=== PATIENT | male | born 1975 | race Caucasian/White ===

== ENCOUNTER 2025-05-10 15:03 | Outpatient (AMB) | payer OTHER, SELFPAY ==
--- OUTSIDE RECORDS SUMMARY | 2024-01-09 07:00 | XMS_ITS ---
Author Organization [facility] Address [address] [place] [address] Care Team Providers Care Side Laster Tack Name Role Phone Jenny Prieto Primary Care Provider Benjamin Ruiz Unavailable [phone] Allergies No Known Allergies Medications Medication SIG (Take, Route, Frequency, Duration) Notes Start Date End Date Status Metoprolol Succinate 25 MG 1 capsule Ora lly Once a day Active Social History Tobacco Use: Social History Observation Description Date Details (start date - stop date) Never Smoker NA - NA Tobacco Use/Smoking Question Answer Notes Are you a: nonsmoker Additional Findings: Tobacco Non-User Current no n-smoker Alcohol Screen Question Answer Notes Did you have a drink contain ing alcohol in the past year? Yes How often did you have a dri nk containing alcohol in the past year? Monthly or less (1 point) Points 1 Interpretation Negative Tobacco use other than smoking: Question Answer Notes Are you an other tobacco user? No Vital Signs Height 5ft 9in in 01/09/2024 Weight 220 lbs 01/09/2024 BMI 32.48 kg/m2 01/09/2024 Encounters Encounter [facility] Date [facility] [address] [address] 01/09/2024 Benjamin Gaytan Plan Of Treatment No Information Progress Notes * Dimas MACIASDOB: [birth year] (50 yo M)Acc No.[id number]:01/09/2024 Progress Notes Patient: Dimas CASE Provider: Kenneth Campos DPM :1975 A ge:48 Y S ex:Male Date:01/09/2024 Address:[address] [place] [address], [place], [id number] Pcp:Jenny Prieto Subjective: * Chief Complaints: * * ROS: G eneral/Constitutional: Nausea d enies. V omiting d enies. H sarina Thirst d enies. L oss appetite d enies. C hills d enies. F atigue d enies.?Fever d enies. N ight Sweats d enies. U nexplained weight loss d enies. U nexplained weight gain d enies. H EENTM: Dentures d enies. D izziness a dmits. G lasses/contacts a dmits. R etinopathy d enies. B lurred/double vision d enies. T MJ?denies. D ischarge/drainage d enies. I mplants d enies. S ore throat d enies. D ental implants d enies. H yaya of hearing d enies. D ifficulty chewing/swallowing/speaking d enies. N ose bleeds d enies. S ore mouth d enies. ? R espiratory: On Oxygen d enies. P neumonia/pleurisy d enies.?Bronchitis d enies. E mphysema d enies. C oughing d enies. C ough blood?denies. S hortness of breath d enies. W heezing d enies. C ardiovascular: Pacemaker d enies. M IT SALES CONSULTANT d enies. W PW d enies. C HF d enies. H eart attack d enies. S eptal defect d enies. R apid beat d enies. C hest pain d enies. A trial Fib. a dmits. M urmur/Palpitations d enies. G astrointestinal: Hemorrhoids d enies. S tomach/Abdominal pain d enies. D ark blood stool d enies. I rritable bowel d enies. C onstipation d enies. D iarrhea d enies. H ematology: Swelling d enies. C lots d enies. V aricose Veins d enies. B ruising d enies. B leeding problem d enies. G enitourinary: Blood urine d enies. F requent/Painfu/urination/bladder control d enies. K idney stones d enies. I nfection (UTI) d enies. N ephropathy d enies. s ex trans dis (STD) d enies. P rostate d enies. M usculoskeletal: Hammertoes d enies. B unions d enies. B ack Pain d enies. M uscle Cramps/ Resting d enies. M uscle cramps / walking d enies.?Generalized aches and pains a dmits. W eakness d enies. I nteg.: Schmidt d enies. S cars d enies. C orns/calluses?denies. I ngrown nails a dmits. P ainful nails d enies. O pen Sores d enies. R ashes d enies. N eurologic: Difficulty sleeping d enies. B rain disorder d enies. N umbness d enies. B alance trouble d enies. C onfusion d enies. F ainting/blackouts d enies. T ingling d enies. T remors d enies. * Medical History: C hicken pox, Covid-19, Irregular heartbeat. * Family History: M other: alive. F ather: alive, heart attack, diagnosed with Unspecified heart disease, Other malignant neoplasm of unspecified site. * Social History: T obacco Use: T obacco Use/Smoking A re you a: n onsmoker A dditional Findings: Tobacco Non-User C urrent non-smoker Tobacco use other than smoking A re you an other tobacco user? N o D rugs/Alcohol: D rugs H ave you used drugs other than those for medical reasons in the past 12 months? N o Alcohol Screen D id you have a drink containing alcohol in the past year? Y es H ow often did you have a drink containing alcohol in the past year? M onthly or less (1 point) P oints 1 I nterpretation N egative M iscellaneous: C affeine: yes, frequency:1 cup per day. Children: no. Exercise: walking, golf. Marital status: . 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 * Medications: T aking Metoprolol Succinate 25 MG Capsule ER 24 Hour Sprinkle 1 capsule Orally Once a day * Allergies: N .K.D.A. Objective: * Vitals: H t: 5ft 9in, Wt:220, BMI:32.48, Shoe size: 10, Ht-cm: 175.26 cm, Wt-k.79 kg. Assessment: Plan: * Treatment: * Images: * The named appointment provid er may or may not be the originator of this progress note, and it is not deemed complete until electronically signed by the appointment provider. Sign off status: Pending * Provider: Kenneth Camops DPM Date: 0 01/09/2024 Generated for Minnie toure/Tracy/Wander on: 07/11/2024 04:20 PM EST
--- NOTE | 2025-05-10 15:05 | MHC.OFFVIS ---
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 Patient used to see a violin repairer at [facility] who has since left and he is seeking 2nd opinion for management of his atrial fibrillation. Patient was diagnose with atrial fibrillation incidentally in August of 2022 in his he came in for a visit and at that time had seen a Cardiology. He was offered cardioversion although he deferred at that point time not understanding the implications of it. He said he was never explain the rhythm versus rate controlled approaches for management of atrial fibrillation. He was then managed with rate control with metoprolol in the next visit last year his metoprolol was increased to 50 mg daily. However he said that he did not tolerate metoprolol therapy and has since stopped. He is currently taking no medications. He has never been prescribed any oral anticoagulation therapy. He has also been diagnose with sleep apnea although he said the therapy given for sleep apnea, he could not tolerate. So therefore he is not currently using any therapies. He has no other significant risk factors for atrial fibrillation. He denies any symptoms related to atrial fibrillation. Denies any change in his physical capacity. Denies any exertional shortness of breath, tiredness, fatigue, orthopnea, PND, leg edema. Denies any chest pain. No lightheadedness. He had had Holter monitor in December of 2022 which showed inadequate rate control with heart rate of 114 beats per minute. Echocardiogram was done in October of 2022 which had shown low normal LV EF with mildly increased wall thickness with mildly dilated left atrium without any valvular abnormalities. He denies any bleeding risk. [facility] Medical History Obstructive sleep apnea Persistent atrial fibrillation Family History Father Afib CAD (coronary artery disease) Mother No problems noted. Social History Patient Tobacco Use Status: Never used Tobacco Review of Systems Const Denies chills, Denies daytime sleepiness, Denies fatigue, Denies fever(s), Denies frequent falls, Denies poor appetite, Denies snoring, Denies stops breathing during sleep, Denies weakness, Denies weight gain and Denies weight loss Eyes Denies loss of vision ENT Denies dizziness and Denies hearing loss Card Denies chest pain, Denies claudication, Denies leg edema, Denies lightheadedness, Denies palpitations, Denies dyspnea, Denies dyspnea on exertion and Denies orthopnea Resp Denies cough, Denies excessive phlegm production, Denies dyspnea, Denies dyspnea on exertion, Denies snoring and Denies wheezing GI Denies abdominal pain, Denies hematochezia, Denies change in bowel habits, Denies nausea and Denies vomiting Denies dysuria and Denies urinary frequency Musc Denies arthralgias, Denies muscle weakness and Denies numbness Skin/Breast Denies nail changes and Denies rash Neuro Denies Abnormal speech present, Denies dizziness, Denies frequent falls, Denies loss of vision, Denies memory loss, Denies numbness and Denies weakness Psych Denies depression and Denies memory loss Endo Denies fatigue and Denies palpitations Jeff/Lymph Reports easy bruising and Reports other (anemia) Aller/Immun Denies wheezing Physical Exam Vital Signs: Last Vital Signs Pulse 108 H 05/10/25 15:06 BP 120/78 05/10/25 15:06 BMI result Body Mass Index 39.6 Const General: cooperative, comfortable, no acute distress, alert, awake and Physically active Nutritional Appearance: obese Orientation/consciousness: patient oriented x3 Limitations: no limitations HEENT Head: Yes normocephalic and Yes atraumatic Neck Neck: Yes trachea midline, Yes supple and Yes no JVD Resp Effort & Inspection: normal respiratory effort Auscultation: clear to auscultation bilaterally Cardio Jugular venous distension: no JVD Rate: tachycardic Rhythm: abnormal rhythm irregularly irregular Heart sounds: S1 normal heart sound present, S2 normal heart sound present, no click, no gallops, no murmurs and no rubs Peripheral pulses: Peripheral pulses 2+ throughout GI Auscultation: normal bowel sounds Skin General skin exam: no rashes or lesions noted Neuro General: patient oriented x3 and no focal motor deficits Speech: No Abnormal speech present Extrem General: Yes no clubbing, cyanosis or edema Psych Appearance: grossly normal Office Procedures EKG Details: EKGs shows atrial fibrillation with rapid ventricular response with nonspecific STT wave changes [id number], Complete Assessment & Plan Assessment & Plan (1) Persistent atrial fibrillation: Code(s): I48.19 - Other persistent atrial fibrillation Category: Medical Plan: Longstanding persistent atrial fibrillation for greater than 2 years in this middle-aged man without any overt symptoms or signs of heart failure. Will check baseline BNP to assess for any presence of myocardial stress. He remains asymptomatic although I had a very long discussion about pathophysiology of atrial fibrillation in his age group. Multiple different long-term trials suggest benefit of rhythm control up front to avoid long-term complication structural changes in his heart as well as avoidance of development of heart failure syndrome and premature that. This was discussed with him in details. He said he remains asymptomatic and could not tolerate metoprolol therapy and does not want metoprolol therapy. His rate is on today's exam is not adequately control but seems like this could be probably related to anxiety of meeting a new provider. At this point time would suggest a Holter monitor. Also suggest an echocardiogram to evaluate for structural abnormalities this was at atrial fibrillation. If that has reduction LV EF or any further abnormalities and further increase in biatrial chamber size I would strongly recommend to pursue rhythm control approach at least 1 attempt to see if he is successful in pursuing this and improve his long-term outcome. Difficulty in pursuing rhythm control approach after long persistent atrial fibrillation was discussed with him. He understands. Will try to obtain these test in near future and follow up with him to discuss further treatment options including antiarrhythmic based attempt at pursuing rhythm control with synchronized cardioversion. Other possibilities including ablation in the future was discussed. He is not more sure about it. We discussed about obstructive sleep apnea as a risk factors for atrial fibrillation and would be important to pursue treatment of sleep apnea that will help with management of his atrial fibrillation. Will follow with him in 4 weeks time, sooner PRN. Thank you for allowing me to partake in his care Orders: Orders CA echo transthoracic complete 05/10/25 I48.19 - Other persistent atrial fibrillation ECG 3 day holter monitor 05/10/25 I48.19 - Other persistent atrial fibrillation NT Pro B Type Natriuretic Pept 05/10/25 I48.19 - Other persistent atrial fibrillation Basic Metabolic Panel 05/10/25 I48.19 - Other persistent atrial fibrillation Complete Blood Count no Diff 05/10/25 I48.19 - Other persistent atrial fibrillation Referrals Sleep Medicine Referral G47.33 - Obstructive sleep apnea (adult) (pediatric) Coding Level of Care Code New Pt Level 4 (75920) Diagnoses Persistent atrial fibrillation I48.19 CPT Codes EKG - CPT: 22311-[id number], Complete ([id number])
[2025-05-10 15:06] VITALS: BP 120/78; PULSE 108; BMI 39.6
--- OUTSIDE RECORDS SUMMARY | 2025-05-10 16:20 | XMS_ITS | Continuity of Care Document ---
Author Organization [facility], Main Office Address [address] [facility] [address] [place] [address] Care Team Providers Care Pottery Decorator Name Role Phone DI SABINONELIDA Primary Care Provider [facility] Exerciser Horse MANDO TANG Joy Operator LUCIA MUELLER Reconciliation Manager Assessment No assessment recorded. Plan of Treatment Reminders Order Date Submit Date Provider Last Modified By Organization Details Last Modified Time Details Appointments None recorde dKieran Lab lipid panel, serum 2024 025 [email or web address] [facility], [address] [place] [address], [place], [address], 5 11:44:26 CMP, serum or plasma 2024 025 CHOLO [facility], [address] [place] [address], [place], [address], 5 15:40:17 magnesi um, serum or plasma 2024 025 CHOLO [facility], [address] [place] [address], [place], [address], 5 15:40:16 TSH, ultra-s ensitiv e, serum 2024 025 CHOLO [facility], [address] [place] [address], [place], [address], 5 15:40:16 Referral dermato logist referra l - for skin check 2024 025 [email or web address] Not available 15:54:11 cardiol ogist referra l 2024 025 CHOLOKenny OrrArce, [address] [facility], [address], [address], 14:50:29 Procedures None recorde d. Surgeries None recorde d. Imaging None recorde d. Medication Orders diltiaz em ER 60 mg capsule ,extend ed release 12 hr 2024 025 [id number], [address] [facility], [place], [address], 15:50:25 Patient TargetsNo targets recorded. Patient Instructions Encounter Date Encounter Id Patient Instructions Last Modified By Organization Details Last Modified Time 02/15/2025 [id number] Well Visit 50 to 65: Care Instructions florecita Not available 02/15/2025 15:40:10 sleep apnea: car e instructions [email or web address] Not available 02/15/2025 15:40:10 Starting a Weight-Loss Plan: Care Instructions [email or web address] Not available 02/15/2025 15:40:10 Reason for Referral Joy Operator Referral for At rial fibrillation Referring Physician: Jenny Prieto [facility], Encounter Date: 02/15/2025 Certified Pediatric Nurse Practitioner Referral for M elanocytic nevus for skin check Referring Physician: Jenny Prieto [facility], Encounter Date: 02/15/2025 Problems Name Problem SNOMED Code Status Onset Date Resolution Date Notes Provider Name and Address Organization Details Recorded Time Atrial fibrillation 68797082 Active 2022 Jenny Prieto MD [address] [facility] [address], [place], [address], [facility] 3 15:29:00 Obstructive sleep apnea syndrome 85827093 Active 2023 Jenny Prieto MD [address] [facility] [address], [place], [address], [facility] 4 12:30:56 Problem Notes None recorded. Procedures Surgical History Date Name Laterality Status Provider Name and Address Organization Details Recorded Time 5 Colonoscopy completed Yareli guzmán MA [facility] 02/15/2025 15:12:49 Imaging Results None recorded. Procedure Notes None recorded. Medical Equipment None Reported. Allergies No known drug allergies Medications Name Sig Start Date Stop Date Status Note LastModified by Organization Details LastModified Time diltiazem ER 60 mg capsule,e xtended release 12 hr Take 1 capsule twice a day by oral route for 90 days. 2024 active Not Available Not Available Not Avai lable metoprolo l succinate ER 25 mg tablet,ex tended release 24 hr TAKE 1 TABLET BY MOUTH EVERY DAY active 02/15/25 pt states he has not taken this in months ; needs new cardiolo gist Not Available Not Available Not Available GaviLyte- G 236 gram-22.7 4 gram-6.74 gram-5.86 gram oral solution TAKE 8 OUNCE BY MOUTH DIRECTED FOLLOW PREP INSTRUCT IONS GIVEN BY YOUR DOCTOR'S OFFICE 12/09 completed Not Available Not Available Not Available Vitals Date Recorded Body height Body mass index (BMI) Body weight Oxygen saturation Heart rate Body temperature Systolic And Diastolic Systolic And Diastolic Provider Name and Address Organization Details Last Updated DateTime 5 175.26 cm 33.7 kg/m2 044479. 06 g 97 % 91 /min 98 [degF] 121/86 mm[Hg] 122/78 mm[Hg] Yareli sigala MA [facility] 5 15:14:59 Social History Question Answer Notes LastModified by Organizat ion Details LastModified Time Tobacco Smoking Status Never Smoker REY Davis [facility] 09/10/2022 14:22:59 Is Blood Transfusion Acceptable In An Emergency? Yes [email or web address] Information not available 12/10/2023 What Type Of Diet Are You Following? REGULAR Information not available 09/10/2022 Do You Take Precautions To Prevent Distracted Driving? No Information not available 09/10/2022 How Often Do You Need To Have Someone Help You When You Read Instructions, Pamphlets, Or Other Written Material From Your Doctor Or Pharmacy? Never Information not available 09/10/2022 Have You Served In The ? No Information not available 09/10/2022 How Many Children Do You Have? 3 ADRIA, Alexandra, Anna Marie Information not available 09/10/2022 Are You Sexually Active? Yes (Marina Ansari) Information not available 09/10/2022 Are You Passively Exposed To Smoke? No Information not available 09/10/2022 Sex: Unknown Functional Status Question Answer Note LastModified by Organizat ion Details LastModified Time Do you use any illicit or recreational drugs? No Information not available 09/10/2022 Do you or have you ever used any other forms of tobacco or nicotine? No Information not available 09/10/2022 What is your level of alcohol consumption? Occasional a few drinks every othe weekend Information not available 02/15/2025 Are you currently employed? Yes Information not available 09/10/2022 Are you able to walk independently without assistance or assistive devices? 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 None active at work Information not available 02/15/2025 Mental Status None recorded. Family History Relationship Description Onset Age of this Age Resolved Age Notes LastModified by Organization Details LastModified Time Father Stented coronary artery in his 80s [email or web address] s Not available 09/10/2022 14:29:31 Father Myocardial infarction in his 80s [email or web address] s Not available 09/10/2022 14:29:48 Father Benign prostatic hyperplasia [email or web address] Not available 08/18 14:42:15 Father Vascular dementia 86 [email or web address] Not available 2023 14:49:39 Father Malignant neoplasm of prostate 70 [email or web address] Not available 2024 15:28:31 Medical History No medical history recorded. Immunizations Vaccine Type Date Status Note Provider Nam e and Address Organization Details Recorded Time COVID-19 vaccine, vector-nr, rS-Ad26, PF, 0.5 mL 09/14/2020 completed REY Davis [place] - [facility] 09/10/2022 14:20:19 Past Encounters Encounter ID Performer Location Encounter Start Date Encounter Closed Date Diagnosis/Indication Diagnosis SNOMED-CT Code Diagnosis ICD10 Code Diagnosis IMO Codes Diagnosis Note [id number] Jenny Prieto MD Main Office [address] [facility] [place] [phone] 02/15/2025 14:57:29 02/15/2025 15:54:11 Adult health examination 567983582 Z00.00 Patient was counseled on healthy diet, exercise and nutrition due to Body mass index is 33.7 kg/m . Last PSADate:Re sult:Plan: screen per guideline. Last Colonoscop y:Date: 08/24/24Resu lt: wnlPlan: recall 10yrs per GI Vaccines:T dAP: due 02/17/2028, had vaccine when son was 4.Zoster rec: script [id number] : script givenInflu rebecca: declined.C ovid: encouraged updated vaccine. Routine labs today Immunizati on status reviewed. Will screen based on risk factors. Regular dental and ophtho care advised as well as seat belt and sunscreen use. Distracted driving discussed. Medication reconciled . Fatigue 79333289 R53.83 Z00.00 R73.01 Hyperlipidemia 31635220 E78.5 Z00.00 Varicella vaccination 68 836943 Z23 Advised to get age 50 Body mass index 30+ - obesity 337835325 Z68.30 E66.9 - Diet and exercise discussed- Patient made aware of risks of obesity- Encouraged to loose weight. Goal set to loose weight at 1-1.5 Lbs/week- Avoid starchy and fatty food- Encouraged use of green vegetables and fruits Obesity 949504674 E66.9 Atrial fibrillation 4943 6004 I48.91 HEMALATHA D S - VASc : 0 , will hold anticoag.S elf DC metoprolol and only let us know today reviewed risk.Will start cardizem, side effect discussed. Will follow up 1 mo.Echo completed, saw cardiology Sleep study done, has robin. Could no tolerate PAP.Will refer to new cardiologi st as current one left practice.H e has cut down on alcohol and caffeine, hydration enforced. Obstructiv e sleep apnea syndrome 72599088 G47.33 Could not tolerate CPAP. Administra tion of pneumococcal vaccine 49700911 Z23 Influenza vaccination declined 370607435 Z28.21 69395450 Melanocytic nevus 016391 001 D22.9 889038889 Health Concerns Section Related Observation LastModified by Organization Detai ls LastModified Time None Recorded Concern Status LastModified by Organization Details LastModified Time None Recorded Payers Encounter Date Sequence Insurance Name Policy Number Policy Tay Covered Member ID Tay Member ID Guarantor Name 02/15/2025 1 JUDIT (EPO) [id number] Sesar ra Macias [id number] Dimas Macias Notes Date Note Type Note Provider Name and Address Organization Details Recorded Time 02/15/2025 text/html Generic HPI TemplateReported by Patient Here for PE visit. Reviewed screening guidelines and recommendations for fitness and weight management. Jenny Prieto MD [address] [facility] [address], [place], [address], [facility] 02/15/2025 15:53:12
--- OUTSIDE RECORDS SUMMARY | 2025-05-10 16:20 | XMS_ITS | Clinical Summary ---
Author Organization [facility] Address [address] [place] [phone] Phone Care Team Providers Care Insole Beveler Name Role Phone Jenny Prieto MD Primary Care Provider [phone] Allergies No known active allergies Medications metoprolol succinate (TOPROL-XL) 25 mg 24 hr tablet Take 1 tablet (25 mg total) by mouth 1 (one) time each day. Do not crush or chew. Active Medical History Medical History Date Comments A-fib ([facility] V24, [facility] V28) Social History Tobacco Use Types Packs/Day Years Used Date Smoking Tobacco: Never Smokeless Tobacco: Never Tobacco Cessation:Counseling Given: Not Answered Alcohol Use Standard Drinks/Week Comments Yes 0 (1 standard drink = 0.6 oz pur e alcohol) SOCIALLLY Interpersonal Safety Answer Date Record ed Physical Abuse Unrecognized value 08/24/2024 Verbal Abuse Unrecognized value 08/24/2024 Sex and Gender Information Value Date Recorded Sex Assigned at Male 08/23/2024 11:55 AM EDT Legal Sex Male 7:48 PM EST Gender Identity Male 08/23/2024 11:55 AM EDT Sexual Orientation Straight 08/24/2024 9: 28 AM EDT Last Filed Vital Signs Vital Sign Reading Time Taken Comments Blood Pressure 103/78 08/24/2024 11:45 AM EDT Pulse 93 08/24/2024 11:45 AM EDT Temperature 37 C (98.6 F) 08/24/2024 11:25 AM EDT Respiratory Rate 18 08/24/2024 11:45 AM EDT Oxygen Saturation 2% 08/24/2024 11:45 AM EDT Inhaled Oxygen Concentration - - Weight 97.5 kg (215 lb) 08/24/2024 10:33 AM EDT Height 175.3 cm (5' 9 ) 08/24/2024 10:33 AM EDT Body Mass Index 31.75 08/24/2024 10:33 AM EDT Plan of Treatment Health Maintenance Due Date Last Done Comments DTaP,Tdap,and Td Vaccines (1 - Tdap) 02/07/1992 Hepatitis B Vaccines (1 of 3 - 19+ 3-dose series) 02/07/1992 Pneumococcal Vaccine: 50+ Ye ars (1 of 1 - PCV) 2023 Zoster Vaccines (1 of 2) 2023 Cholesterol Screening (Lipid Panel) 03/03/2024 HIV Screening 03/03/2024 Hepatitis C Screening 03/03/2024 Social Influencers of Health Screening 03/03/2024 Depression Screening 05/19/2024 COVID-19 Vaccine (2 - 2024-2 6 season) 2025 09/14/2020 Influenza Vaccine (#1) 2025 Colorectal Cancer Screening: Colonoscopy 08/24/2034 08/24/2024 RSV Immunization Adult Patie nts (1 - 1-dose 75+ series) 02/07/2048 HIB Vaccines Aged Out No longer eligi ble based on patient's age to complete this topic HPV Vaccines Aged Out No longer eligi ble based on patient's age to complete this topic Hepatitis A Vaccines Aged Out No long er eligible based on patient's age to complete this topic IPV Vaccines Aged Out No longer eligi ble based on patient's age to complete this topic MMR Vaccines Aged Out No longer eligi ble based on patient's age to complete this topic Meningococcal ACWY Vaccine Aged Out N o longer eligible based on patient's age to complete this topic Meningococcal B Vaccine Aged Out No l onger eligible based on patient's age to complete this topic RSV Immunization Patients Un preet 20 months Aged Out No longer eligible b ased on patient's age to complete this topic Varicella Vaccines Aged Out No longer eligible based on patient's age to complete this topic Procedures Procedure Name Priority Date/Time Associated Diagnosis Comments COLONOSCOPY Routine 08/24/2024 11:24 AM EDT Colon cancer screening from Last 3 Months or Most Recently Relevant to Health Maintenance Results * COLONOSCOPY Anesthesia - MAC; [facility] ENDOSCOPY (08/24/2024 11:24 AM EDT) Anatomical Region Laterality Modality Endoscopy 08/24/2024 11:0 3 AM EDT Impressions 08/24/2024 11:26 AM EDT - Diverticulosis in the left colon. - The examination was otherwise normal on direct and retroflexion views. - No specimens collected. Recommendation: - Patient has a contact number available for emergencies. The signs and symptoms of potential delayed complications were discussed with the patient. Return to normal activities tomorrow. Written discharge instructions were provided to the patient. - Resume previous diet. - Continue present medications. - Repeat colonoscopy in 10 years for screening purposes. Narrative 08/24/2024 11:26 AM EDT [facility] GI Patient Name: Dimas Macias Procedure Date: 08/24/2024 11:03 AM Date of : 1975 Age: 49 Room: ROOM 15 Gender: Male Note Status: Finalized Attending MD: Shamar Mckenna MD, Procedure Date No Time: 08/24/2024 Procedure: Colonoscopy Indications: Screening for colorectal malignant neoplasm Providers: Shamar Mckenna MD Referring MD: Shamar Mckenna MD Medicines: Monitored Anesthesia Care Complications: No immediate complications. Estimated Blood Loss: Estimated blood loss: none. Procedure: After I obtained informed consent, the scope was passed under direct vision. Throughout the procedure, the patient's blood pressure, pulse, and oxygen saturations were monitored continuously. The Colonoscope was introduced through the anus and advanced to the cecum, identified by appendiceal orifice and ileocecal valve. The colonoscopy was performed without difficulty. The patient tolerated the procedure well. The quality of the bowel preparation was good. Findings: A few medium-mouthed diverticula were found in the left colon. The exam was otherwise without abnormality on direct and retroflexion views. Procedure Code(s): --- Professional --- G0121, Colorectal cancer screening; colonoscopy on individual not meeting criteria for high risk Diagnosis Code(s): --- Professional --- Z12.11, Encounter for screening for malignant neoplasm of colon K57.30, Diverticulosis of large intestine without perforation or abscess without bleeding CPT copyright 1 [employer]. All rights reserved. The codes documented in this report are preliminary and upon director of email marketing review may be revised to meet current compliance requirements. MD hSamar Tena MD 08/24/2024 11:26:54 AM This report has been signed electronically.Shamar Mckenna MD Number of Addenda: 0 Note Initiated On: 08/24/2024 11:03 AM Scope In: Scope Out: Endoscopy Department at [facility] - [address] [place] [id number] Procedure Note Shamar Mckenna MD - 08/24/2024 [facility] GI Patient Name: Dimas Macias Procedure Date: 08/24/2024 11:03 AM Date of : 1975 Age: 49 Room: ROOM 15 Gender: Male Note Status: Finalized Attending MD: Shamar Mckenna MD, Procedure Date No Time: 08/24/2024 Procedure: Colonoscopy Indications: Screening for colorectal malignant neoplasm Providers: Shamar Mckenna MD Referring MD: Shamar Mckenna MD Medicines: Monitored Anesthesia Care Complications: No immediate complications. Estimated Blood Loss: Estimated blood loss: none. Procedure: After I obtained informed consent, the scope was passed under direct vision. Throughout theprocedure, the patient's blood pressure, pulse, and oxygen saturations were monitored continuously. The Colonoscope was introduced through the anus and advanced to the cecum, identified by appendiceal orifice and ileocecal valve. The colonoscopy was performed without difficulty. The patient tolerated the procedure well. The quality of the bowel preparation was good. Findings: A few medium-mouthed diverticula were found in the left colon. The exam was otherwise without abnormality ondirect and retroflexion views. Procedure Code(s): --- Professional --- G0121, Colorectal cancer screening; colonoscopy on individual not meeting criteria for high risk Diagnosis Code(s): --- Professional --- Z12.11, Encounter for screening for malignantneoplasm of colon K57.30, Diverticulosis of large intestine without perforation or abscess without bleeding CPT copyright 202 [employer]. All rights reserved. The codes documented in this report are preliminary and upon director of email marketing reviewmay be revised to meet current compliance requirements. MD Shamar Tena MD 08/24/2024 11:26:54 AM This report has been signed electronically.Shamar Mckenna MD Number of Addenda: 0 Note Initiated On: 08/24/2024 11:03 AM Scope In: Scope Out: Endoscopy Department at [facility] - [address] [place] [phone] IMPRESSION: - Diverticulosis in the left colon. - The examination was otherwise normal on directand retroflexion views. - No specimens collected. Recommendation: - Patient has a contact number available for emergencies. The signs and symptoms of potential delayed complications were discussed with thepatient. Return to normal activities tomorrow. Written discharge instructions were provided to thepatient. - Resume previous diet. - Continue present medications. - Repeat colonoscopy in 10 years for screening purposes. Shamar Mckenna MD GI~PROCEDURE ORDERABLES Final R esult from Last 3 Months or Most Recently Relevant to Health Maintenance Insurance [employer] Care Teams Insole Beveler Relationship Specialty Start Date End Date Jenny Prieto MD [address] [phone] PCP - General Family Medicine 08/23/24
--- OUTSIDE RECORDS SUMMARY | 2025-05-10 16:20 | XMS_ITS ---
Author Name [facility] Organization Unknown Care Team Organization Name Specialty Phone Email Start Date End Da te [facility] NULL Primary Care 11/21/2022 01/05/2024 [facility] NULL Primary Care 09/23/2022 01/05/2024
--- OUTSIDE RECORDS SUMMARY | 2025-05-10 16:20 | XMS_ITS | Data Portability ---
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 The patient consented and was seen through audio only was used due to patient technology challenges. If audio only connection was used, the provider used telephone communication. Patient was located at home in the [facility]. Provider was located in the office. No other persons participated in the telemedicine visit except for the patient unless otherwise indicated here. Total time of visit was 15 minutes. [email or web address] Not available 03/18/2025 08:49:14 Plan of Treatment Reminders Order Date Submit Date Provider Last Modified By Organization Details Last Modified Time Details Appointments None recor ded. Lab lipid panel , serum 2024 025 [email or web address] [facility], [address], [place], [address], 11:44:26 CMP, serum or plasm a 2024 025 CHOLO [facility], [address], [place], [address], 15:40:17 magne sium, serum or plasm a 2024 025 CHOLO [facility], [address], [place], [address], 5 15:40:16 TSH, ultra -sens itive , serum 2024 025 CHOLO [facility], [address], [place], [address], 5 15:40:16 magne sium, serum or plasm a 2023 024 CHOLO [facility], [address], [place], [address], 4 08:09:20 TSH, ultra -sens itive , serum 2023 024 CHOLO [facility], [address], [place], [address], 4 08:09:19 lipid panel , serum 2023 024 [email or web address] [facility], [address], [place], [place], [address], 4 10:35:12 CBC w/ auto diff 2023 024 CHOLO [facility], [address], [place], [address], 4 08:09:17 CMP, serum or plasm a 2023 024 CHOLO [facility], [address], [place], [address], 4 08:09:16 magne sium, serum or plasm a 2022 023 CHOLO [facility], [address], [place], [address], 3 11:41:09 CBC w/ auto diff 2022 023 CHOLO [facility], [address], [place], [address], 3 16:46:50 TSH, serum or plasm a 2022 023 CHOLO [facility], [address], [place], [address], 3 20:20:31 CMP, serum or plasm a 2022 023 CHOLO [facility], [address], [place], [address], 3 20:08:21 magne sium, serum or plasm a 2022 023 CHOLO [facility], [address], [place], [address], 3 20:08:23 lipid panel , serum 2022 023 CHOLO [facility], [address], [place], [address], 3 20:08:22 hepat itis C virus Ab, serum 2022 023 CHOLO [facility], [address], [place], [address], 3 01:06:04 Referral derma tolog ist refer ral - for skin check 2024 025 [email or web address] Not available 5 15:54:[address] refer ral 2024 025 ATHENAFAX Shiva [facility], [address] [facility], [place], [address], 5 14:50:[address] refer ral - new onset afib HEMALATHA D S - VASc : 0 , will hold antic oag. Will start beta block er. Echo order ed Sleep study order ed Advis ed to cut down on alcoh ol and caffe ine, hydra te Thyro id panel /elec troly te order ed. 2022 023 piedad [facility], [address] [place] [address], [address] Floor, [place], [address], 3 16:10:47 derma tolog ist refer ral - for skin check 2022 023 [email or web address] Not available 3 16:02:38 sleep medic ine refer ral - stop bang 3 with new onset afib. 2022 023 [facility], [address] [place], [address], 3 15:52:15 gastr oente rolog ist refer ral - Needs colon cance r scree daryl 2022 023 [facility], [address] [place], [address], 4 13:36:51 Procedures colon oscop y scree daryl (PROC ) 2022 023 [email or web address] In-Office Order, Internal Use Only DO Not Attach Compendium DO Not Attach Compendium, Do Not Delete/merge, [id number] 3 15:36:47 Surgeries None recor ded. Imaging XR, chest , 2 view 2022 023 CHOLO In-Office Order, Internal Use Only DO Not Attach Compendium DO Not Attach Compendium, Do Not Delete/merge, [id number] 3 16:12:57 US, echoc ardio gram - new onset afib 2022 023 piedad [facility], [address] [place], [address], 3 10:28:22 XR, chest , 2 view 2022 023 CHOLO In-Office Order, Internal Use Only DO Not Attach Compendium DO Not Attach Compendium, Do Not Delete/merge, [id number] 3 16:15:54 elect padilla diogr am 2022 023 [email or web address] In-Office Order, Internal Use Only DO Not Attach Compendium DO Not Attach Compendium, Do Not Delete/merge, [id number] 3 15:37:50 Medication Orders dilti azem ER 60 mg capsu le,ex tende d relea se 12 hr 2024 025 CHOLO [id number], [address] [place], [address], 5 15:50:25 metop rolol succi feng ER 25 mg table t,ext ended relea se 24 hr 2022 023 [email or web address] [id number], [address] [place], [address], 5 15:10:37 Patient TargetsNo targets recorded. Patient Instructions Encounter Date Encounter Id Patient Instructions Last Modified By Organization Details Last Modified Time 09/10/2022 [id number] Well Visit 50 to 65: Care Instructions [email or web address] Not available 09/10/2022 14:55:24 learning about colon cancer ckokar Not available 09/10/2022 14:55:23 Starting a Weight-Loss Plan: Care Instructions [email or web address] Not available 09/10/2022 14:55:24 12/10/2023 [id number] sleep apnea: car e instructions ckokar Not available 12/10/2023 14:59:31 Well Visit 50 to 65: Care Instructions [email or web address] Not available 12/10/2023 14:59:31 medical record request* ckokar Not available 12/10/2023 17:17:54 Starting a Weight-Loss Plan: Care Instructions [email or web address] Not available 12/10/2023 14:59:31 02/15/2025 [id number] Well Visit 50 to 65: Care Instructions florectia Not available 02/15/2025 15:40:10 sleep apnea: car e instructions florecita Not available 02/15/2025 15:40:10 Starting a Weight-Loss Plan: Care Instructions florecita Not available 02/15/2025 15:40:10 03/18/2025 [id number] atrial fibrillation: care instructions florecita Not available 03/18/2025 08:49:44 Reason for Referral Trust Mail Clerk Referral for Screening for malignant neoplasm of colon Needs colon cancer screening Referring Physician: Jenny Sevilla [facility], Encounter Date: 09/10/2022 Aviculturist Referral for M elanocytic nevus of skin for skin check Referring Physician: Jenny Sevilla [facility], Encounter Date: 09/10/2022 Sleep Medicine Referral for Snoring stop bang 3 with new onset afib. Referring Physician: Jenny Sevilla [facility], Encounter Date: 09/10/2022 Rub[employer] Carver Referral for At rial fibrillation new onset afibCHA D S - VASc : 0 , will hold anticoag. Will start beta lion. Echo orderedSleep study ordered Advised to cut down on alcohol and caffeine, hydrate Thyroid panel/electrolyte ordered. Referring Physician: Jenny Sevilla [facility], Encounter Date: 09/10/2022 [employer] Carver Referral for At rial fibrillation Referring Physician: Jenny Sevilla [facility], Encounter Date: 02/15/2025 Aviculturist Referral for M elanocytic nevus for skin check Referring Physician: Jenny Sevilla [facility], Encounter Date: 02/15/2025 Results Created Date Observation Date Name Description Value Unit Range Abnormal Flag Note LastModifiedBy Organization Detail LastModifiedTime 09/13/1909/12/2022 COMPL ETE CBC WITH DIFF WBC 6.4 K/mm3 (4.0-1 1.0) Not Available [facility] (Centralized Electronic Ordering - All Locations) Patient Can Go To The Location Of Their Choice, [id number] 09/12/2022 16:46:50 09/13/1909/12/2022 COMPL ETE CBC WITH DIFF RBC 5.37 M/mm3 (4.70- 6.10) Not Available [facility] (Centralized Electronic Ordering - All Locations) Patient Can Go To The Location Of Their Choice, 09/12/2022 16:46:50 09/13/1909/12/2022 COMPL ETE CBC WITH DIFF HGB 16.4 gm/dL (13.7- 17.1) Not Available [facility] (Centralized Electronic Ordering - All Locations) Patient Can Go To The Location Of Their Choice, 09/12/2022 16:46:50 09/13/1909/12/2022 COMPL ETE CBC WITH DIFF HCT 52.2 % (40.5- 50.0) high Not Available [facility] (Centralized Electronic Ordering - All Locations) Patient Can Go To The Location Of Their Choice, 09/12/2022 16:46:50 09/13/1909/12/2022 COMPL ETE CBC WITH DIFF MCV 97.2 fL (80.0- 94.0) high Not Available [facility] (Centralized Electronic Ordering - All Locations) Patient Can Go To The Location Of Their Choice, 09/12/2022 16:46:50 09/13/1909/12/2022 COMPL ETE CBC WITH DIFF MCH 30.5 pg (27.0- 34.0) Not Available [facility] (Centralized Electronic Ordering - All Locations) Patient Can Go To The Location Of Their Choice, 09/12/2022 16:46:50 09/13/1909/12/2022 COMPL ETE CBC WITH DIFF MCHC 31.4 g/dL (33.0- 37.0) low Not Available [facility] (Centralized Electronic Ordering - All Locations) Patient Can Go To The Location Of Their Choice, 09/12/2022 16:46:50 09/13/1909/12/2022 COMPL ETE CBC WITH DIFF plt 253 K/mm3 (150-4 60) Not Available [facility] (Centralized Electronic Ordering - All Locations) Patient Can Go To The Location Of Their Choice, 09/12/2022 16:46:50 09/13/1909/12/2022 COMPL ETE CBC WITH DIFF RDW-SD 45.8 fL (<47.0 ) Not Available [facility] (Centralized Electronic Ordering - All Locations) Patient Can Go To The Location Of Their Choice, 09/12/2022 16:46:50 09/13/1909/12/2022 COMPL ETE CBC WITH DIFF MPV 9.2 fL (9.4-1 2.4) low Not Available [facility] (Centralized Electronic Ordering - All Locations) Patient Can Go To The Location Of Their Choice, 09/12/2022 16:46:50 09/13/1909/12/2022 COMPL ETE CBC WITH DIFF automated NRBC 0.0 #/100 _WBC' s Not Available [facility] (Centralized Electronic Ordering - All Locations) Patient Can Go To The Location Of Their Choice, 09/12/2022 16:46:50 09/13/1909/12/2022 COMPL ETE CBC WITH DIFF abs. NRBC 0.0 K/mm3 Not Available [facility] (Centralized Electronic Ordering - All Locations) Patient Can Go To The Location Of Their Choice, 09/12/2022 16:46:50 09/13/1909/12/2022 COMPL ETE CBC WITH DIFF neut # 3.5 K/mm3 (1.3-7 .0) Not Available [facility] (Centralized Electronic Ordering - All Locations) Patient Can Go To The Location Of Their Choice, 09/12/2022 16:46:50 09/13/1909/12/2022 COMPL ETE CBC WITH DIFF lymph # 1.9 K/mm3 (0.8-3 .1) Not Available [facility] (Centralized Electronic Ordering - All Locations) Patient Can Go To The Location Of Their Choice, 09/12/2022 16:46:50 09/13/1909/12/2022 COMPL ETE CBC WITH DIFF mono# 0.7 K/mm3 (0.4-1 .3) Not Available [facility] (Centralized Electronic Ordering - All Locations) Patient Can Go To The Location Of Their Choice, 09/12/2022 16:46:50 09/13/1909/12/2022 COMPL ETE CBC WITH DIFF eo # 0.2 K/mm3 (0.0-0 .4) Not Available [facility] (Centralized Electronic Ordering - All Locations) Patient Can Go To The Location Of Their Choice, 09/12/2022 16:46:50 09/13/1909/12/2022 COMPL ETE CBC WITH DIFF baso # 0.0 K/mm3 (0.0-0 .1) Not Available [facility] (Centralized Electronic Ordering - All Locations) Patient Can Go To The Location Of Their Choice, 09/12/2022 16:46:50 09/13/1909/12/2022 COMPL ETE CBC WITH DIFF abs. imm gran 0.0 K/mm3 Not Available [facility] (Centralized Electronic Ordering - All Locations) Patient Can Go To The Location Of Their Choice, 09/12/2022 16:46:50 09/13/1909/12/2022 COMPL ETE CBC WITH DIFF neut 54.5 % (44-76 ) Not Available [facility] (Centralized Electronic Ordering - All Locations) Patient Can Go To The Location Of Their Choice, 09/12/2022 16:46:50 09/13/1909/12/2022 COMPL ETE CBC WITH DIFF lymph 30.4 % (15-43 ) Not Available [facility] (Centralized Electronic Ordering - All Locations) Patient Can Go To The Location Of Their Choice, 09/12/2022 16:46:50 09/13/1909/12/2022 COMPL ETE CBC WITH DIFF monocyte 11.3 % (4.5-1 0.5) high Not Available [facility] (Centralized Electronic Ordering - All Locations) Patient Can Go To The Location Of Their Choice, 09/12/2022 16:46:50 09/13/1909/12/2022 COMPL ETE CBC WITH DIFF eo 3.0 % (0-6) Not Available [facility] (Centralized Electronic Ordering - All Locations) Patient Can Go To The Location Of Their Choice, 09/12/2022 16:46:50 09/13/1909/12/2022 COMPL ETE CBC WITH DIFF baso 0.6 % (0-2) Not Available [facility] (Centralized Electronic Ordering - All Locations) Patient Can Go To The Location Of Their Choice, 09/12/2022 16:46:50 09/13/1909/12/2022 COMPL ETE CBC WITH DIFF imm gran 0.2 % Not Available [facility] (Centralized Electronic Ordering - All Locations) Patient Can Go To The Location Of Their Choice, 09/12/2022 16:46:50 09/13/1909/12/2022 COMPR EHENS LIZZIE METAB OLIC PANL glucose 95 mg/dL (70-99 ) Not Available [facility] (Centralized Electronic Ordering - All Locations) Patient Can Go To The Location Of Their Choice, 09/12/2022 20:08:21 09/13/1909/12/2022 COMPR EHENS LIZZIE METAB OLIC PANL BUN 15 mg/dL (6-20) Not Available [facility] (Centralized Electronic Ordering - All Locations) Patient Can Go To The Location Of Their Choice, 09/12/2022 20:08:21 09/13/1909/12/2022 COMPR EHENS LIZZIE METAB OLIC PANL creatinine 0.9 mg/dL (0.7-1 .2) Not Available [facility] (Centralized Electronic Ordering - All Locations) Patient Can Go To The Location Of Their Choice, 09/12/2022 20:08:21 09/13/1909/12/2022 COMPR EHENS LIZZIE METAB OLIC PANL sodium 141 mmol/ L (133-1 45) Not Available [facility] (Centralized Electronic Ordering - All Locations) Patient Can Go To The Location Of Their Choice, 09/12/2022 20:08:21 09/13/1909/12/2022 COMPR EHENS LIZZIE METAB OLIC PANL potassium 4.4 mmol/ L (3.6-5 .2) Not Available [facility] (Centralized Electronic Ordering - All Locations) Patient Can Go To The Location Of Their Choice, 09/12/2022 20:08:21 09/13/1909/12/2022 COMPR EHENS LIZZIE METAB OLIC PANL chloride 103 mmol/ L (98-10 7) Not Available [facility] (Centralized Electronic Ordering - All Locations) Patient Can Go To The Location Of Their Choice, 09/12/2022 20:08:21 09/13/1909/12/2022 COMPR EHENS LIZZIE METAB OLIC PANL bicarbonate 30 mmol/ L (22-29 ) high Not Available [facility] (Centralized Electronic Ordering - All Locations) Patient Can Go To The Location Of Their Choice, 09/12/2022 20:08:21 09/13/1909/12/2022 COMPR EHENS LIZZIE METAB OLIC PANL anion gap 8 (4-17) Not Available [facility] (Centralized Electronic Ordering - All Locations) Patient Can Go To The Location Of Their Choice, 09/12/2022 20:08:21 09/13/1909/12/2022 COMPR EHENS LIZZIE METAB OLIC PANL albumin 4.9 gm/dL (3.4-4 .8) high Not Available [facility] (Centralized Electronic Ordering - All Locations) Patient Can Go To The Location Of Their Choice, 09/12/2022 20:08:21 09/13/1909/12/2022 COMPR EHENS LIZZIE METAB OLIC PANL calcium 9.8 mg/dL (8.6-1 0.5) Not Available [facility] (Centralized Electronic Ordering - All Locations) Patient Can Go To The Location Of Their Choice, 09/12/2022 20:08:21 09/13/1909/12/2022 COMPR EHENS LIZZIE METAB OLIC PANL bilirubin,to fernando 0.7 mg/dL (0-1.2 ) Not Available [facility] (Centralized Electronic Ordering - All Locations) Patient Can Go To The Location Of Their Choice, 09/12/2022 20:08:21 09/13/1909/12/2022 COMPR EHENS LIZZIE METAB OLIC PANL total protein 8.0 gm/dL (6.2-8 .2) Not Available [facility] (Centralized Electronic Ordering - All Locations) Patient Can Go To The Location Of Their Choice, 09/12/2022 20:08:21 09/13/1909/12/2022 COMPR EHENS LIZZIE METAB OLIC PANL Ag ratio 1.6 Not Available [facility] (Centralized Electronic Ordering - All Locations) Patient Can Go To The Location Of Their Choice, 09/12/2022 20:08:21 09/13/1909/12/2022 COMPR EHENS LIZZIE METAB OLIC PANL AST 22 U/L (0-40) Not Available [facility] (Centralized Electronic Ordering - All Locations) Patient Can Go To The Location Of Their Choice, 09/12/2022 20:08:21 09/13/1909/12/2022 COMPR EHENS LIZZIE METAB OLIC PANL alk phos 58 U/L (40-12 9) Not Available [facility] (Centralized Electronic Ordering - All Locations) Patient Can Go To The Location Of Their Choice, 09/12/2022 20:08:21 09/13/1909/12/2022 COMPR EHENS LIZZIE METAB OLIC PANL ALT 37 U/L (0-41) Not Available [facility] (Centralized Electronic Ordering - All Locations) Patient Can Go To The Location Of Their Choice, 09/12/2022 20:08:21 09/13/1909/12/2022 COMPR EHENS LIZZIE METAB OLIC PANL estimated GFR creatinine 102 mL/mi n/1.7 3_M2 Creat inine based estim ated glome rular filtr ation (eGFR ) in adult s is calcu lated using the Natio nal Kidne y Found ation recom jose de jesus d 2020 CKD-E PI equat ion. Estim ates GFR from serum creat inine , age and sex. Not Available [facility] (Centralized Electronic Ordering - All Locations) Patient Can Go To The Location Of Their Choice, 09/12/2022 20:08:21 09/13/1909/12/2022 LIPID PANEL cholesterol, total 166 mg/dL (<200) Not Available [facility] ([facility] Ordering - All Locations) Patient Can Go To The Location Of Their Choice, 09/12/2022 20:08:22 09/13/1909/12/2022 LIPID PANEL triglyceride 67 mg/dL (<150) Not Available [facility] ([facility] Order[facility] - All Locations) Patient Can Go To The Location Of Their Choice, 09/12/2022 20:08:22 09/13/1909/12/2022 LIPID PANEL HDL chol 52 mg/dL (>39) Not Available [facility] (Centralized Electronic Ordering - All Locations) Patient Can Go To The Location Of Their Choice, 09/12/2022 20:08:22 09/13/1909/12/2022 LIPID PANEL LDL cholesterol, calculated 101 mg/dL (0-130 ) Not Available [facility] (Centralized Electronic Ordering - All Locations) Patient Can Go To The Location Of Their Choice, 09/12/2022 20:08:22 09/13/19 23 09/12/2022 LIPID PANEL non HDL cholesterol (calc) 114 mg/dL (<160) Not Available [facility] ([facility]ized [facility] Ordering - All Locations) Patient Can Go To The Location Of Their Choice, 09/12/2022 20:08:22 09/13/19 23 09/12/2022 MAGNE SIUM magnesium 2.5 mg/dL (1.6-2 .3) high Not Available [facility] (Centralized Electronic Ordering - All Locations) Patient Can Go To The Location Of Their Choice, 09/12/2022 20:08:23 09/13/19 23 09/12/2022 TSH WITH REFLE X TO FT4 TSH 1.63 uIU/m L (0.4-4 .2) Not Available [facility] (Centralized Electronic Ordering - All Locations) Patient Can Go To The Location Of Their Choice, 09/12/2022 20:20:31 09/13/1909/13/2022 ANTI- HEPAT ITIS C anti-hepatit is C (neg) normal NEGAT LIZZIE Refer ence range : Negat lizzie This test was perfo rmed on the Abbot t Archi tect immun oassa y syste m. Not Available [facility] (Centralized Electronic Ordering - All Locations) Patient Can Go To The Location Of Their Choice, 09/13/2022 01:06:04 10/25/1910/24/2022 MAGNE SIUM magnesium 2.3 mg/dL (1.6-2 .3) Not Available [facility] (Centralized Electronic Ordering - All Locations) Patient Can Go To The Location Of Their Choice, 10/24/2022 17:10:10 01/05/20 24 01/06/2024 CMP14 (REFL EX HGB A1C) glucose 95 mg/dL 70-99 normal Not Available [facility] ([facility]) [address] [facility], [place], [address], 01/06/2024 08:09:16 01/05/20 24 01/06/2024 CMP14 (REFL EX HGB A1C) BUN 11 mg/dL 6-24 normal Not Available [facility] ([facility]) [address] [place], [address], 01/06/2024 08:09:16 01/05/20 24 01/06/2024 CMP14 (REFL EX HGB A1C) creatinine 0.92 mg/dL 0.76-1 .27 normal Not Available [facility] ([facility]) [address] [place], [address], 01/06/2024 08:09:16 01/05/20 24 01/06/2024 CMP14 (REFL EX HGB A1C) eGFR 101 mL/mi n/1.7 3 >59 normal Not Available [facility] ([facility]) [address] [place], [address], 01/06/2024 08:09:16 01/05/20 24 01/06/2024 CMP14 (REFL EX HGB A1C) BUN/creatini ne ratio 12 9-20 normal Not Available [facility] ([facility]) [address] [place], [address], 01/06/2024 08:09:16 01/05/20 24 01/06/2024 CMP14 (REFL EX HGB A1C) sodium 140 mmol/ L 134-14 4 normal Not Available [facility] ([facility]) [address] [place], [address], 01/06/2024 08:09:16 01/05/20 24 01/06/2024 CMP14 (REFL EX HGB A1C) potassium 4.6 mmol/ L 3.5-5. 2 normal Not Available [facility] ([facility]) [address] [place], [address], 01/06/2024 08:09:16 01/05/20 24 01/06/2024 CMP14 (REFL EX HGB A1C) chloride 104 mmol/ L 96-106 normal Not Available [facility] ([facility]) [address] [place], [address], 01/06/2024 08:09:16 01/05/20 24 01/06/2024 CMP14 (REFL EX HGB A1C) carbon dioxide, total 23 mmol/ L 20-29 normal Not Available [facility] ([facility]) [address] [place], [address], 01/06/2024 08:09:16 01/05/20 24 01/06/2024 CMP14 (REFL EX HGB A1C) calcium 9.4 mg/dL 8.7-10 .2 normal Not Available [facility] ([facility]) [address] [place], [address], 01/06/2024 08:09:16 01/05/20 24 01/06/2024 CMP14 (REFL EX HGB A1C) protein, total 7.3 g/dL 6.0-8. 5 normal Not Available [facility] ([facility]) [address] [place], [address], 01/06/2024 08:09:16 01/05/20 24 01/06/2024 CMP14 (REFL EX HGB A1C) albumin 4.4 g/dL 4.1-5. 1 normal Not Available [facility] ([facility]) [address] [place], [address], 01/06/2024 08:09:16 01/05/20 24 01/06/2024 CMP14 (REFL EX HGB A1C) globulin, total 2.9 g/dL 1.5-4. 5 Not Available [facility] ([facility]) [address] [place], [address], 01/06/2024 08:09:16 01/05/20 24 01/06/2024 CMP14 (REFL EX HGB A1C) bilirubin, total 0.6 mg/dL 0.0-1. 2 normal Not Available [facility] ([facility]) [address] [place], [address], 01/06/2024 08:09:16 01/05/20 24 01/06/2024 CMP14 (REFL EX HGB A1C) alkaline phosphatase 47 IU/L 44-121 normal Not Available [facility] ([facility]) [address] [place], [address], 01/06/2024 08:09:16 01/05/20 24 01/06/2024 CMP14 (REFL EX HGB A1C) AST (SGOT) 26 IU/L 0-40 normal Not Available [facility] ([facility]) [address] [place], [address], 01/06/2024 08:09:16 01/05/20 24 01/06/2024 CMP14 (REFL EX HGB A1C) ALT (SGPT) 43 IU/L 0-44 normal Not Available [facility] ([facility]) [address] [place], [address], 01/06/2024 08:09:16 01/05/20 24 01/05/2024 CBC WITH DIFFE RENTI AL/PL ATELE T WBC 6.2 x10e3 /uL 3.4-10 .8 normal Not Available [facility] ([facility]) [address] [place], [address], 01/06/2024 08:09:17 01/05/20 24 01/05/2024 CBC WITH DIFFE RENTI AL/PL ATELE T RBC 5.00 x10e6 /uL 4.14-5 .80 normal Not Available [facility] ([facility]) [address] [place], [address], 01/06/2024 08:09:17 01/05/20 24 01/05/2024 CBC WITH DIFFE RENTI AL/PL ATELE T hemoglobin 16.0 g/dL 13.0-1 7.7 normal Not Available [facility] ([facility]) [address] [place], [address], 01/06/2024 08:09:17 01/05/20 24 01/05/2024 CBC WITH DIFFE RENTI AL/PL ATELE T hematocrit 47.3 % 37.5-5 1.0 normal Not Available [facility] ([facility]) [address] [facility], [place], [address], 01/06/2024 08:09:17 01/05/20 24 01/05/2024 CBC WITH DIFFE RENTI AL/PL ATELE T MCV 95 fL 79-97 normal Not Available [facility] ([facility]) [address] [facility], [place], [address], 01/06/2024 08:09:17 01/05/20 24 01/05/2024 CBC WITH DIFFE RENTI AL/PL ATELE T MCH 32.0 pg 26.6-3 3.0 normal Not Available [facility] ([facility]) [address] [place], [address], 01/06/2024 08:09:17 01/05/20 24 01/05/2024 CBC WITH DIFFE RENTI AL/PL ATELE T MCHC 33.8 g/dL 31.5-3 5.7 normal Not Available [facility] ([facility]) [address] [place], [address], 01/06/2024 08:09:17 01/05/20 24 01/05/2024 CBC WITH DIFFE RENTI AL/PL ATELE T RDW 12.3 % 11.6-1 5.4 Not Available [facility] ([facility]) [address] [place], [address], 01/06/2024 08:09:17 01/05/20 24 01/05/2024 CBC WITH DIFFE RENTI AL/PL ATELE T platelets 263 x10e3 /uL 150-45 0 normal Not Available [facility] ([facility]) [address] [facility], [place], [address], 01/06/2024 08:09:17 01/05/20 24 01/05/2024 CBC WITH DIFFE RENTI AL/PL ATELE T neutrophils 57 % not estab. normal Not Available [facility] ([facility]) [address] [facility], [place], [address], 01/06/2024 08:09:17 01/05/20 24 01/05/2024 CBC WITH DIFFE RENTI AL/PL ATELE T lymphs 29 % not estab. normal Not Available [facility] ([facility]) [address] [facility], [place], [address], 01/06/2024 08:09:17 01/05/20 24 01/05/2024 CBC WITH DIFFE RENTI AL/PL ATELE T monocytes 11 % not estab. normal Not Available [facility] ([facility]) [address] [facility], [place], [address], 01/06/2024 08:09:17 01/05/20 24 01/05/2024 CBC WITH DIFFE RENTI AL/PL ATELE T eos 2 % not estab. normal Not Available [facility] ([facility]) [address] [place], [address], 01/06/2024 08:09:17 01/05/20 24 01/05/2024 CBC WITH DIFFE RENTI AL/PL ATELE T basos 1 % not estab. normal Not Available [facility] ([facility]) [address] [place], [address], 01/06/2024 08:09:17 01/05/20 24 01/05/2024 CBC WITH DIFFE RENTI AL/PL ATELE T immature cells CALL CENTER COORDINATOR Not Available [facility] ([facility]) [address] [place], [address], 01/06/2024 08:09:17 01/05/20 24 01/05/2024 CBC WITH DIFFE RENTI AL/PL ATELE T neutrophils (absolute) 3.6 x10e3 /uL 1.4-7. 0 normal Not Available [facility] ([facility]) [address] [place], [address], 01/06/2024 08:09:17 01/05/20 24 01/05/2024 CBC WITH DIFFE RENTI AL/PL ATELE T lymphs (absolute) 1.8 x10e3 /uL 0.7-3. 1 normal Not Available [facility] ([facility]) [address] [place], [address], 01/06/2024 08:09:17 01/05/20 24 01/05/2024 CBC WITH DIFFE RENTI AL/PL ATELE T monocytes(ab solute) 0.7 x10e3 /uL 0.1-0. 9 normal Not Available [facility] ([facility]) [address] [place], [address], 01/06/2024 08:09:17 01/05/20 24 01/05/2024 CBC WITH DIFFE RENTI AL/PL ATELE T eos (absolute) 0.1 x10e3 /uL 0.0-0. 4 normal Not Available [facility] ([facility]) [address] [place], [address], 01/06/2024 08:09:17 01/05/20 24 01/05/2024 CBC WITH DIFFE RENTI AL/PL ATELE T baso (absolute) 0.0 x10e3 /uL 0.0-0. 2 normal Not Available [facility] ([facility]) [address] [place], [address], 01/06/2024 08:09:17 01/05/20 24 01/05/2024 CBC WITH DIFFE RENTI AL/PL ATELE T immature granulocytes 0 % not estab. Not Available [facility] ([facility]) [address] [facility], [place], [address], 01/06/2024 08:09:17 01/05/20 24 01/05/2024 CBC WITH DIFFE RENTI AL/PL ATELE T immature grans (abs) 0.0 x10e3 /uL 0.0-0. 1 Not Available [facility] ([facility]) [address] [facility], [place], [address], 01/06/2024 08:09:17 01/05/20 24 01/05/2024 CBC WITH DIFFE RENTI AL/PL ATELE T NRBC CALL CENTER COORDINATOR Not Available [facility] ([facility]) [address] [facility], [place], [address], 01/06/2024 08:09:17 01/05/20 24 01/05/2024 CBC WITH DIFFE RENTI AL/PL ATELE T hematology comments: CALL CENTER COORDINATOR Not Available [facility] ([facility]) [address] [facility], [place], [address], 01/06/2024 08:09:17 01/05/20 24 01/06/2024 LIPID PANEL cholesterol, total 163 mg/dL 100-19 9 normal Not Available [facility] ([facility]) [address] [facility], [place], [address], 01/06/2024 08:09:18 01/05/20 24 01/06/2024 LIPID PANEL triglyceride s 71 mg/dL 0-149 normal Not Available [facility] ([facility]) [address] [facility], [place], [address], 01/06/2024 08:09:18 01/05/20 24 01/06/2024 LIPID PANEL HDL cholesterol 47 mg/dL >39 normal Not Available [facility] ([facility]) [address] [facility], [place], [address], 01/06/2024 08:09:18 01/05/20 24 01/06/2024 LIPID PANEL VLDL cholesterol cierra 14 mg/dL 5-40 Not Available [facility] ([facility]) [address] [place], [address], 01/06/2024 08:09:18 01/05/20 24 01/06/2024 LIPID PANEL LDL chol calc ([facility]) 102 mg/dL 0-99 above high normal Not Available [facility] ([facility]) [address] [place], [address], 01/06/2024 08:09:18 01/05/20 24 01/06/2024 LIPID PANEL LDL calc comment: CALL CENTER COORDINATOR Not Available [facility] ([facility]) [address] [facility], [place], [address], 01/06/2024 08:09:18 01/05/20 24 01/06/2024 TSH RFX ON ABNOR MAL TO FREE T4 TSH 1.440 uIU/m L 0.450- 4.500 normal Not Available [facility] ([facility]) [address] [place], [address], 01/06/2024 08:09:19 01/05/20 24 01/06/2024 MAGNE SIUM magnesium 2.2 mg/dL 1.6-2. 3 normal Not Available [facility] ([facility]) [address] [place], [address], 01/06/2024 08:09:20 09/11/19 23 09/10/2022 elect rocar diogr am No observ ation record ed. [email or web address] In-Office Order Internal Use Only DO Not Attach Compendium DO Not Attach Compendium, Do Not Delete/merge, 09/10/2022 16:32:54 09/11/19 elect rocar diogr am No observ ation record ed. [email or web address] In-Office Order Internal Use Only DO Not Attach Compendium DO Not Attach Compendium, Do Not Delete/merge, 09/10/2023 17:15:38 10/26/19 23 10/24/2022 XR, chest , 2 view No observ ation record ed. florecita [facility] [address] [facility] [address], [place], [address], 10/26/2022 08:37:10 10/26/19 23 10/24/2022 XR, chest , 2 view No observ ation record ed. florecita [facility] [address], [place], [address], 10/26/2022 08:42:07 12/10/19 24 11/14/2022 trans -thor acic echoc ardio gram (TTE) (PROC ) No observ ation record ed. florecita Not Available 2023 17:05:01 08/25/19 25 colon oscop y No observ ation record ed. [address], [address], 08/24/2024 12:09:26 Result Notes None recorded. Problems Name Problem SNOMED Code Status Onset Date Resolution Date Notes Provider Name and Address Organization Details Recorded Time Atrial fibrillation 79282632 Active 2022 Jenny Sevilla MD [address], [place], [address], [facility] 3 15:29:00 Obstructive sleep apnea syndrome 16844752 Active 2023 Jenny Sevilla MD [address], [place], [address], [facility] [place] [place] 4 12:30:56 Problem Notes None recorded. Procedures Surgical History Date Name Laterality Status Provider Name and Address Organization Details Recorded Time 5 Colonoscopy completed [facility]areli guzm[facility] 02/15/2025 15:12:49 Imaging Results None recorded. Procedure [...] height Body mass index (BMI) Body weight Heart rate Oxygen saturation Body temperature Systolic And Diastolic Provider Name and Address Organization Details Last Updated DateTime 3 175.26 cm 34.1 kg/m2 700246. 84 g 74 /min 97 % 98.3 [degF] 126/72 mm[Hg] Yareli sigala MA [facility] 3 14:27:05 Date Recorded Body height Body mass index (BMI) Body weight Heart rate Oxygen saturation Body temperature Systolic And Diastolic Provider Name and Address Organization Details Last Updated DateTime 3 175.26 cm 32.4 kg/m2 39483.4 5 g 92 /min 97 % 98.4 [degF] 118/82 mm[Hg] Yareli sigala MA [facility] 3 11:11:18 Date Recorded Body height Body mass index (BMI) Body weight Oxygen saturation Heart rate Body temperature Systolic And Diastolic Provider Name and Address Organization Details Last Updated DateTime 4 175.26 cm 34.4 kg/m2 117493. 42 g 97 % 91 /min 98.3 [degF] 115/73 mm[Hg] Kailee Walter MA [facility] 4 14:39:03 Date Recorded Body height Body mass index (BMI) Body weight Oxygen saturation Heart rate Body temperature Systolic And Diastolic Systolic And Diastolic Provider Name and Address Organization Details Last Updated DateTime 5 175.26 cm 33.7 kg/m2 258511. 06 g 97 % 91 /min 98 [degF] 121/86 mm[Hg] 122/78 mm[Hg] Yareli sigala MA [facility] 15:14:59 Date Recorded Body height Provider Name an d Address Organization Details Last Updated DateTime 03/18/2025 175.26 cm Meagan Lubin MA [facility] 03/18/2025 08:20:26 Social History Question Answer Notes LastModified by Organizat ion Details LastModified Time Tobacco Smoking Status [facility] 09/10/2022 14:22:59 Is Blood Transfusion Acceptable In An Emergency? Yes [email or web address] Information not available 12/10/2023 What Type Of [...] How Many Children Do You Have? 3 Alexandra [place] Alison Information not available 09/10/2022 Are You Sexually [...] PF, 0.5 mL 09/14/2020 completed REY Davis [facility] 09/10/2022 14:20:19 Past Encounters Encounter ID Performer Location Encounter Start Date Encounter Closed Date Diagnosis/Indication Diagnosis SNOMED-CT Code Diagnosis ICD10 Code Diagnosis IMO Codes Diagnosis Note [id number] Jenny Sevilla MD Main Office [address] [facility] [address] [place] [address] 09/10/2022 13:57:49 09/10/2022 15:37:50 Adult health examination 975250483 Z00.00 Patient was counseled on healthy diet, exercise and nutrition due to Body mass index is 34.1 kg/m . Last PSADate:Re sult:Plan: screen per guideline. Last Colonoscop y:Date:Res ult:Plan: referral placed. Vaccines:T dAP: notes within 10yrs, advised to get recordsZos ter rec: advised age 48.PCV20: Not due.Influe nza: yearly flu shot advisedCov id: JJ 09/14/20, bivalent advised/en couraged. Routine labs today Immunizati on status reviewed. Will screen based on risk factors. Regular dental and ophtho care advised as well as seat belt and sunscreen use. Distracted driving discussed. Medication reconciled . Fatigue 23095570 R53.83 Z00.00 Hyperlipidemia 69496651 E78.5 Z00.00 Hepatitis C screening 41 5442784 Z11.59 Screening for malignant neoplasm of colon 940867638 Z12.11 Varicella vaccination 68 697645 Z23 Advised to get age 48 Body mass index 30+ - obesity 020352520 Z68.30 E66.9 - Diet and exercise discussed- Patient made aware of risks of obesity- Encouraged to loose weight. 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 Cardiac arrhythmia 90341 7007 I49.9 Snoring 34640971 R06.83 STOP BANG 3 Atrial fibrillation 4943 6004 I48.91 HEMALATHA D S - VASc : 0 , will hold anticoag.W ill start beta lino.Rodney abarca orderedSle ep study orderedWil l refer to cardiology .Advised to cut down on alcohol and caffeine, hydrateThy roid panel done [id number] Jenny Sevilla MD Main Office [address] [facility] [address] [place] [address] 10/18/2022 10:52:51 10/18/2022 11:45:41 Atrial fibrillation 89767751 I48.91 HEMALATHA D S - VASc : 0 , will hold anticoag.W ill start beta lion.Rodney abarca scheduled leep study orderedWil l refer to cardiology . - scheduled Novembervis d to cut down on alcohol and caffeine, hydrateThy roid panel done Hypermagnesemia 99376143 E83.41 Snoring 58920317 R06.83 STOP BANG 3, sleep study pending. [id number] Jenny Sevilla MD Main Office [address] [place] [address] 12/10/2023 14:25:12 12/10/2023 15:15:06 Adult health examination 998300831 Z00.00 Patient was counseled on healthy diet, exercise and nutrition due to Body mass index is 34.4 kg/m . Last PSADate:Re sult:Plan: screen per guideline. Last Colonoscop y:Date:Res ult:Plan: Apt January with [facility] Vaccines:T dAP: due 02/17/2028, had vaccine when son was 4.Zoster rec: script [id number] : Not due.Influe nza: yearly flu shot encouraged .Covid: encouraged updated vaccine. Routine labs today Immunizati on status reviewed. Will screen based on risk factors. Regular dental and ophtho care advised as well as seat belt and sunscreen use. Distracted driving discussed. Medication reconciled . Fatigue 32452230 R53.83 Z00.00 Hyperlipidemia 41727724 E78.5 Z00.00 Varicella vaccination 68 071596 Z23 Advised to get age 50 Body mass index 30+ - obesity 133794770 Z68.30 E66.9 - Diet and exercise discussed- Patient made aware of risks of obesity- Encouraged to loose weight. Goal set to loose weight at 1-1.5 Lbs/week- Avoid starchy and fatty food- Encouraged use of green vegetables and fruits Obesity 032302090 E66.9 Atrial fibrillation 4943 6004 I48.91 HEMALATHA D S - VASc : 0 , will hold anticoag.W ill start beta lion.Ec ho completed, saw cardiology Sleep study done, has osaWill refer to cardiology .Advised to cut down on alcohol and caffeine, hydrate Obstructiv e sleep apnea syndrome 66876362 G47.33 Discussed, consider cpap. [id number] Jenny Sevilla MD Main Office [address] [place] [address] [place], [place] [address] 02/15/2025 14:57:29 02/15/2025 15:54:11 Adult health examination 503668408 Z00.00 Patient was counseled on healthy diet, exercise and nutrition due to Body mass index is 33.7 kg/m . Last PSADate:Re sult:Plan: screen per guideline. Last Colonoscop y:Date: 08/24/24Resu lt: wnlPlan: recall 10yrs per GI Vaccines:T dAP: due 02/17/2028, had vaccine when son was 4.Zoster rec: script [id number] : script givenInflu rebecca: declined.C ovid: encouraged updated vaccine. Routine labs today Immunizati on status reviewed. Will screen based on risk factors. Regular dental and ophtho care advised as well as seat belt and sunscreen use. Distracted driving discussed. Medication reconciled . Fatigue 57983031 R53.83 Z00.00 R73.01 Hyperlipidemia 82599872 E78.5 Z00.00 Varicella vaccination 68 162073 Z23 Advised to get age 50 Body mass index 30+ - obesity 353352547 Z68.30 E66.9 - Diet and exercise discussed- Patient made aware of risks of obesity- Encouraged to loose weight. Goal set to loose weight at 1-1.5 Lbs/week- Avoid starchy and fatty food- Encouraged use of green vegetables and fruits Obesity 925190207 E66.9 Atrial fibrillation 4943 6004 I48.91 HEMALATHA D S - VASc : 0 , will hold anticoag.S elf DC metoprolol and only let us know today reviewed risk.Will start cardizem, side effect discussed. Will follow up 1 mo.Echo completed, saw cardiology Sleep study done, has robin. Could no tolerate PAP.Will refer to new cardiologi as current one left practice.H e has cut down on alcohol and caffeine, hydration enforced. Obstructiv e sleep apnea syndrome 69633931 G47.33 Could not tolerate CPAP. Administra tion of pneumococcal vaccine 68008312 Z23 Influenza vaccination declined 663668730 Z28.21 11957017 Melanocytic nevus 086575 001 D22.9 449172475 [id number] Jenny Sevilla MD Main Office [address] [facility] [address] [facility] [place] [address] 03/18/2025 08:05:41 03/18/2025 09:37:47 Atrial fibrillation 21210240 I48.91 -Continue Cardizem as currently prescribed ; patient tolerating well.-No indication for anticoagul ation at present given HEMALATHA D S - VASc score of 0.-Follow up with cardiology as scheduled in April.- Continue to limit caffeine and alcohol intake.-En courage reconsider ation of sleep apnea management options if symptoms persist or worsen.-Ro utine follow-up at next annual visit or sooner if new or worsening symptoms (e.g., palpitatio ns, dyspnea, chest pain, dizziness) develop. Health Concerns Section Related Observation LastModified by Organization Detai ls LastModified Time None Recorded Concern Status LastModified by Organization Details LastModified Time None Recorded Advance Directives Directive None Recorded Payers Insurance Date Sequence Insurance Name Policy Number Policy Tay Covered Member ID Tay Member ID Guarantor Name 03/21/2025 1 [employer] (EPO) [id number] Sesar Macias [id number] [facility] 09/09/2022 1 [place] [facility] (HMO) [id number] Marina Macias [id number] [facility] 12/02/2023 1 [employer] (POS) [id number] [facility] [id number] [facility] Notes Date Note Type Note Provider Name and Address Organization Details Recorded Time 3 text/html Generic HPI TemplateReported by Patient Patient present for well/new adult visit Is not using ASA. OTC/Herbal supplements use: denies Sex hx: 1 F partnerSTI: deniesDrug use: deniesEtoh use: 5 drinks/day on weekends.tobacco use: deniesspf/derm: spf use advised, denies abnormal mole Dental: follows every 6mo, up to dateEye: due, he plans to follow up.Diet: no restrictions.Activity: weight bearing exercise discussed. Jenny Sevilla MD [address], [address], [facility] 09/10/2022 15:32:02 3 text/html Atrial FibrillationReported by PatientHPIFor associated symptoms, patient reportsno chest discomfort,no dyspnea,no decline in exercise capacity,no fatigue,no associated dizziness, andno awareness of palpitation. Jenny Sevilla MD [address], [address], [facility] [place] 10/18/2022 11:42:59 4 text/html Generic HPI TemplateReported by Patient Here for PE visit. Reviewed screening guidelines and recommendations for fitness and weight management.Has apt with cardiology January. Jenny Sevilla MD [address] [facility] [address], [place], [address], [facility] 12/10/2023 15:08:14 5 text/html Generic HPI TemplateReported by Patient Here for PE visit. Reviewed screening guidelines and recommendations for fitness and weight management. Jenny Sevilla MD [address] [facility] [address], [place], [address], [facility] 02/15/2025 15:53:12 5 text/html Atrial FibrillationReported by PatientThe patient was seen via telemedicine for follow-up regarding atrial fibrillation. At his previous visit, metoprolol was discontinued due to intolerance, he experienced fatigue, a w eird sensation, and tingling, all of which resolved after stopping the medication. He was subsequently started on Cardizem (diltiazem), which he is tolerating well without adverse effects. He denies chest discomfort, shortness of breath, decreased exercise tolerance, fatigue, dizziness, or palpitations. 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 He has significantly reduced caffeine intake and reports moderate alcohol consumption. He has a history of obstructive sleep apnea but was unable to tolerate CPAP therapy. His HEMALATHA D S - VASc score is 0, so anticoagulation has been deferred at this time. Jenny Sevilla MD [address] [facility] [address], [place], [address], [facility] 03/18/2025 08:49:59
--- OUTSIDE RECORDS SUMMARY | 2025-05-10 16:20 | XMS_ITS | Continuity of Care Document ---
Author Organization [facility], Main Office Address [address] [place] [address] Care Team Providers Care Telecommunications Engineer Name Role Phone JENNY SEVILLA Primary Care Provider [facility] Fleet Maintenance Foreman [phone] MANDO TANG Quill Reamer LUCIA MUELLER Supervisor Boiler Repair [phone] Assessment Encounter Date Assessment Date Assessment LastModified by Organization Details LastModified Time 03/18/2025 03/18/2025 This service was provided using telemedicine ([employer] ). The patient consented and was seen through audio only was used due to patient technology challenges. If audio only connection was used, the provider used telephone communication. Patient was located at home in the [facility]. Provider was located in the office. No other persons participated in the telemedicine visit except for the patient unless otherwise indicated here. Total time of visit was 15 minutes. [email or web address] Not available 03/18/2025 08:49:14 Plan of Treatment Reminders Order Date Submit Date Provider Last Modified By Organization Details Last Modified Time Details Appointments None record ed. Lab None record ed. Referral None record ed. Procedures None record ed. Surgeries None record ed. Imaging None record ed. Medication Orders None record ed. Patient TargetsNo targets recorded. Patient Instructions Encounter Date Encounter Id Patient Instructions Last Modified By Organization Details Last Modified Time 03/18/2025 [id number] atrial fibrillation: care instructions [email or web address] Not available 03/18/2025 08:49:44 Reason for Referral None Reported. Problems Name Problem SNOMED Code Status Onset Date Resolution Date Notes Provider Name and Address Organization Details Recorded Time Atrial fibrillation 71556314 Active 2022 Jenny Sevilla MD [address], [place], [address], [facility] 3 15:29:00 Obstructive sleep apnea syndrome 32580992 Active 2023 Jenny Sevilla MD [address], [facility] [place], [address], [facility] 4 12:30:56 Problem Notes None recorded. Procedures Surgical History Date Name Laterality Status Provider Name and Address Organization Details Recorded Time 5 Colonoscopy completed Yareli guzmán MA [facility] 02/15/2025 15:12:49 Imaging Results None recorded. Procedure [...] Not Available Vitals Date Recorded Body height Provider Name an d Address Organization Details Last Updated DateTime 03/18/2025 175.26 cm Meagan Lubin MA MA [facility] 03/18/2025 08:20:26 Social History Question Answer Notes LastModified by Organizat ion Details LastModified Time Tobacco Smoking Status Never Smoker REY Davis [facility] 09/10/2022 14:22:59 Is Blood Transfusion Acceptable In An Emergency? Yes [email or web address] Information not available 12/10/2023 What Type Of [...] Many Children Do You Have? 3 ADRIA, Anna Marie Morris Information not available 09/10/2022 Are You Sexually [...] Immunizations Vaccine Type Date Status Note Provider Ari cole and Address Organization Details Recorded Time COVID-19 vaccine, vector-nr, rS-Ad26, PF, 0.5 mL 09/14/2020 completed REY Davsi [facility] 09/10/2022 14:20:19 Past Encounters Encounter ID Performer Location Encounter Start Date Encounter Closed Date Diagnosis/Indication Diagnosis SNOMED-CT Code Diagnosis ICD10 Code Diagnosis IMO Codes Diagnosis Note [id number] Jenny Sevilla MD Main Office [address] [facility] [place] [id number] 02/15/2025 14:57:29 02/15/2025 15:54:11 Adult health examination 510978986 Z00.00 Patient was counseled on healthy diet, exercise and nutrition due to Body mass index is 33.7 kg/m . Last PSADate:Re sult:Plan: screen per guideline. Last Colonoscop y:Date: 08/24/24Resu lt: wnlPlan: recall 10yrs per GI Vaccines:T dAP: due 02/17/2028, had vaccine when son was 4.Zoster rec: script [id number] : script givenInflu rebecca: declined.C ovid: encouraged updated vaccine. Routine labs today Immunizati on status reviewed. Will screen based on risk factors. Regular dental and ophtho care advised as well as seat belt and sunscreen use. Distracted driving discussed. Medication reconciled . Fatigue 97912722 R53.83 Z00.00 R73.01 Hyperlipidemia 09883882 E78.5 Z00.00 Varicella vaccination 68 090829 Z23 Advised to get age 50 Body mass index 30+ - obesity 383581617 Z68.30 E66.9 - Diet and exercise discussed- Patient made aware of risks of obesity- Encouraged to loose weight. Goal set to loose weight at 1-1.5 Lbs/week- Avoid starchy and fatty food- Encouraged use of green vegetables and fruits Obesity 525490045 E66.9 Atrial fibrillation 4943 6004 I48.91 HEMALATHA [...] hydration enforced. Obstructiv e sleep apnea syndrome 15419316 G47.33 Could not tolerate CPAP. Administra tion of pneumococcal vaccine 36471070 Z23 Influenza vaccination declined 303436859 Z28.21 75724119 Melanocytic nevus 582695 001 D22.9 [id number] Jenny Sevilla MD Main Office [address] [facility] [address] [facility] [place] [id number] 03/18/2025 08:05:41 03/18/2025 09:37:47 Atrial fibrillation 36192006 I48.91 -Continue Cardizem as currently prescribed ; [...] Member ID Tay Member ID Guarantor Name 03/18/2025 1 [employer] (EPO) [id number] Sesar ra Macias [id number] Dimas Macias Notes Date Note Type Note Provider Name and Address Organization Details Recorded Time 5 text/html Atrial FibrillationReported by PatientThe patient [...] or palpitations. 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 Jenny Sevilla MD [address] [address], [place], [address], [facility] 03/18/2025 08:49:59
--- OUTSIDE RECORDS SUMMARY | 2025-05-10 16:21 | XMS_ITS | Patient Health Record ---
Author Organization [facility] Address [address] [facility] [place] [address] Care Team Providers Care Photoengraving Etcher Name Role Phone Conner Jenny Primary Care Provider Benjamin Ruiz Unavailable [phone] Allergies No Known Allergies Reason For Referral No Information Medications Medication SIG (Take, Route, Frequency, Duration) [...] Are you an other tobacco user? No Plan Of Treatment Pending Test Test Name Order Date X ray : Foot, left 3V 09/11/2018 X ray : Foot, right 3V 09/11/2018 Insurance Providers Payer Name Payer Address Payer Phone Subscriber Number Group Number Insured Name Patient Relationship to Insured Coverage Start Date Coverage End Date [employer] [address] [place] [address] [id number] Gabriel Macias Spouse - patient is the spouse of the insured Medical (General) History Medical History History ICD Code Chicken pox covid-19 irregular heartbeat Surgical History Surgery Date(Month/Year)
== END 2025-05-10 15:52 | disposition home or self-care (01) ==
LOC: HO.HCS 15:04
PROVIDERS: PCP Family Medicine; Visit Provider Internal Medicine Cardiovascular Disease
DX: I48.19 Other persistent atrial fibrillation (principal)
CPT/HCPCS: 93010; 99204

== ENCOUNTER 2025-05-10 15:03 | Outpatient (REF) | payer OTHER, SELFPAY ==
[2025-05-10 16:25] LABS: Hematocrit 45.4 % (42.0-52.0); Hemoglobin 15.3 g/dl (14.0-18.0); Mean Corpuscular HGB Conc 33.7 g/dl (31.0-36.0); Mean Corpuscular Hemoglobin 31.0 pg (27.0-33.0); Mean Corpuscular Volume 91.9 fL (80.0-98.0); NRBC Abs Auto 0.000 X10*3/uL (0.0-0.012); NRBC Pct Auto 0.0 /100WBC (0.0-0.2); Platelet Count 267 X10*3/uL (160-400); Red Blood Count 4.94 X10*6/uL (4.60-5.80); White Blood Count 9.2 X10*3/uL (4.8-10.8)
[2025-05-10 16:51] LABS: Anion Gap 10 (12-20); Blood Urea Nitrogen 15 mg/dL (9-16); Calcium 9.1 mg/dL (8.4-10.2); Carbon Dioxide 26 mmol/L (22-29); Chloride 108 mmol/L (96-108); Estimated Glomerular Filt Rate > 60; Potassium 3.9 mmol/L (3.3-5.1); Sodium 140 mmol/L (135-145)
[2025-05-10 17:00] LABS: NT Pro B Type Natriuretic Pept 152.3 pg/mL (<300)
== END 2025-05-10 15:04 | disposition home or self-care (01) ==
LOC: HO.LAB 15:03
PROVIDERS: PCP Family Medicine; Visit Provider Internal Medicine Cardiovascular Disease
DX: I48.19 Other persistent atrial fibrillation (principal)
CPT/HCPCS: 36415; 80048; 83880; 85027; 93005